=== PATIENT | female | born 1975 | race Caucasian/White ===

== ENCOUNTER 2018-12-04 15:00 | Emergency (ER) | payer BC ==
[~2018-12-04] VITALS: Ht 167.6 cm; Wt 125.0 kg
[2018-12-04 15:03] VITALS: TEMP 96.3
[2018-12-04 15:46] LABS: BASO # 0.1 (0.0-0.2); BASO % 0.6 % (0.0-2.0); EOS # 0.2 (0.0-0.7); EOS % 1.9 % (0-4.0); GRAN # 5.9 (1.4-6.5); GRAN % 66.4 % (42.2-75.2); HEMATOCRIT 40.5 % (37.0-47.0); HEMOGLOBIN 13.4 g/dl (12.5-16.0); LYMPH % 22.1 % (20.0-51.0); MEAN CELL VOLUME 89 fl (80.0-100.0); MEAN CORPUSCULAR HEMOGLOBIN 29 pg (27.0-31.0); MEAN CORPUSCULAR HGB CONC 33 g/dl (33.0-37.0); MEAN PLATELET VOLUME 10.7 fl (7.4-10.4); MONO # 0.8 (0.1-0.6); MONO % 8.8 % (1.7-9.3); PLATELET COUNT 284 K/mm3 (130-400); RED BLOOD COUNT 4.57 M/mm3 (4.10-5.30); REDCELL DISTRIBUTION WIDTH-CV 14.1 % (11.5-14.5)
[2018-12-04 15:51] LABS: ALBUMIN 4.4 gm/dL (3.5-5.0); BILIRUBIN,TOTAL 0.5 mg/dL (0.0-1.0); CALCIUM 9.3 mg/dL (8.4-10.2); CREATININE, serum 0.9 mg/dL (0.52-1.25); POTASSIUM 3.8 mmol/L (3.4-5.0); TOTAL PROTEIN 7.9 gm/dL (6.4-8.2)
[2018-12-04 16:25] LABS: COLLECTION METHOD CLEAN CATCH
[2018-12-04 16:47] LABS: MUCOUS Present /lpf; PH 5 (5-8); SQUAMOUS EPITHELIAL 0-2 /hpf; URINE APPEARANCE Hazy; URINE BACTERIA None Seen /hpf; URINE BILIRUBIN Negative (NEGATIVE); URINE BLOOD 1+ (NEGATIVE); URINE COLOR Yellow; URINE GLUCOSE Negative (NEGATIVE); URINE KETONE Negative (NEGATIVE); URINE LEUKOCYTE ESTERASE Negative (NEGATIVE); URINE NITRATE Negative (NEGATIVE); URINE PROTEIN(semi-quant) Negative (NEGATIVE); URINE UROBILINOGEN Negative (NEGATIVE)
[2018-12-04 17:34] VITALS: BP 129/65; PULSE 88
== END 2018-12-04 17:35 | disposition home or self-care (01) ==
LOC: COL.ER 15:00
PROVIDERS: Nurse Practitioner
DX: J40 Bronchitis, not specified as acute or chronic (principal)
CPT/HCPCS: J1100; J2270

== ENCOUNTER → 2019-02-02 | Outpatient (CLI) | payer BC | LOC: COL.RAD 10:19 | DX: K80.20 Calculus of gallbladder without cholecystitis without obstruction (principal); K82.8 Other specified diseases of gallbladder ==

== ENCOUNTER 2019-02-18 05:06 | Day surgery (SDC) | payer BC ==
[~2019-02-18] VITALS: Ht 167.6 cm; Wt 134.0 kg
[2019-02-18] VITALS (11 sets, daily range): BP systolic 140–154; BP diastolic 52–94; PULSE 71–83; TEMP 97.3–97.8
--- NOTE | 2019-02-18 11:00 | NUR ---
Patient arrives to [facility] [place] [facility] via cart, accompanied by VICE [employer]IDENT [employer] Ashley. Patient is arousable to physical stimulation and is oriented when awake. She has 4 operative sites with clean, dry, intact [place]. Monitoring applied - VSS and WNL on 3L nasal cannula. She complains of mild pain in her abdomen a 4/10, but is asleep when not stimulated. Call light in reach. Will continue to monitor.
--- NOTE | 2019-02-18 11:15 | NUR ---
Patient is sleeping. Arousable to stimulation. VSS and WNL on 1L nasal cannula. Operative sites remain clean, dry, intact. Patient denies any nausea. Has mild pain, remains a 4/10. Given Ice chips to start. Will continue to monitor.
--- NOTE | 2019-02-18 11:30 | NUR ---
VSS and WNL on 1 L nasal cannula. Patient continues to be very sleepy, but easily aroused to voice now.
--- NOTE | 2019-02-18 11:45 | NUR ---
VSS and WNL on 1 L nasal cannula. Patient is more alert. Offered and receives water and applesauce. Tolerating PO well. Denies any nausea.
--- NOTE | 2019-02-18 12:00 | NUR ---
VSS and WNL on 1 L nasal cannula.
--- NOTE | 2019-02-18 12:30 | NUR ---
VSS and WNL on room air. Patient given [place] for pain 02/17.
--- NOTE | 2019-02-18 13:00 | NUR ---
SpO2 ranging from 88-92% on room air. Placed back on 2L nasal cannula. Encouraged coughing and deep breathing. Given pillow to splint abdomen. States pain is improved after intervention. Pain now a 2/10. Will continue to monitor.
--- NOTE | 2019-02-18 13:30 | NUR ---
Patient requests to use restroom. Escorted to restroom where she voids and then returns to room. Patients vital signs are stable on room air. Denies pain, nausea, or need.
--- NOTE | 2019-02-18 14:00 | NUR ---
VSS and WNL on room air. Patient eating a muffin and juice. Discharge criteria has been met. Waiting on ride home.
--- NOTE | 2019-02-18 14:25 | NUR ---
Discharge instructions discussed, denies any questions, and verbalizes understanding. PIV removed with catheter intact and hemostasis achieved. Patient changes to clothing independently. Waiting for ride home.
--- NOTE | 2019-02-18 14:52 | NUR ---
Patient escorted to exit via wheelchair by ARIE Alexander. Discharged to home with ride in private vehicle at 1452.
== END 2019-02-18 14:52 | disposition home or self-care (01) ==
LOC: SDCO 05:06
DX: K80.10 Calculus of gallbladder with chronic cholecystitis without obstruction (principal); Z82.49 Family history of ischemic heart disease and other diseases of the circulatory system; Z80.7 Family history of other malignant neoplasms of lymphoid, hematopoietic and related tissues; E66.01 Morbid (severe) obesity due to excess calories; Z68.42 Body mass index [BMI] 45.0-49.9, adult
CPT/HCPCS: J0690; J1100; J2405; J2704; J3010; J7120

== ENCOUNTER 2021-12-19 07:50 | Day surgery (SDC) | payer BC ==
[~2021-12-19] VITALS: Ht 167.6 cm; Wt 137.8 kg
[2021-12-19 09:21] VITALS: BP 142/77; PULSE 87; TEMP 97.8
[2021-12-19 09:25] LABS: BASO % 0.6 % (0.0-2.0); EOS # 0.2 K/mm3 (0.0-0.7); EOS % 2.6 % (0.0-4.0); GRAN # 4.2 K/mm3 (1.4-6.5); GRAN % 59.4 % (42.2-75.2); HEMATOCRIT 42.1 % (37.0-47.0); LYMPH # 2.1 K/mm3 (1.2-3.4); LYMPH % 29.3 % (20.0-51.0); MEAN CELL VOLUME 88 fl (80.0-100.0); MEAN CORPUSCULAR HEMOGLOBIN 29 pg (27-31); MEAN CORPUSCULAR HGB CONC 33 g/dl (33.0-37.0); MEAN PLATELET VOLUME 10.6 fl (7.4-10.4); MONO # 0.5 K/mm3 (0.1-0.6); MONO % 7.7 % (1.7-9.3); PLATELET COUNT 279 K/mm3 (130-400); RED BLOOD COUNT 4.79 M/mm3 (4.10-5.30); REDCELL DISTRIBUTION WIDTH-CV 14.2 % (11.5-14.5)
[2021-12-19 09:35] LABS: CALCIUM 9.2 mg/dL (8.4-10.2); CREATININE, serum 0.81 mg/dL (0.57-1.11); POTASSIUM 4.6 mmol/L (3.5-4.5)
[2021-12-19] MEDS ORDERED: NORCO 325 MG-51 TAB PO (12:13)
[2021-12-19 13:00] VITALS: BP 113/76; PULSE 78; TEMP 97.8
--- NOTE | 2021-12-19 13:00 | NUR ---
Patient arrived back into [facility] from OR. ARIE Mari brought patient via cart. Report recieved from ARIE Looney. Patient on 2L NC and vitally stable. Patient requesting blueberry muffin and apple juice.
[2021-12-19 13:15] VITALS: BP 118/81; PULSE 81
--- NOTE | 2021-12-19 13:15 | NUR ---
Patient doing well. Weaned to 1L NC and vitally stable. Tolerated food and drink well. States pain is tolerable and denies nausea.
[2021-12-19 13:30] VITALS: BP 125/81; PULSE 87
--- NOTE | 2021-12-19 13:30 | NUR ---
Patient states she would like to use restroom. Having pain when getting up and moving and patient requests pain medication prior to leaving. Ambulated to restroom independently. Able to void successfully.
--- NOTE | 2021-12-19 13:45 | NUR ---
[place] given per MAR for incisional pain. Assisted patient to get on pants and underwear. Educated patient on splinting the abdomen when moving, coughing, or laughing.
--- NOTE | 2021-12-19 13:55 | NUR ---
Went through discharge instructions with patient. Questions answered. Verbalized understanding to education. IV removed without complications. Patient escorted to emergency department entrance via wheelchair where we were met by Anai, friend. Patient got into personal vehicle unassisted and left in the care of her friend.
[2021-12-19 15:50] VITALS: BP 109/76; PULSE 87
== END 2021-12-19 14:10 | disposition home or self-care (01) ==
LOC: SDCO 07:50
PROVIDERS: Surgery
DX: K43.2 Incisional hernia without obstruction or gangrene (principal); I10 Essential (primary) hypertension; E11.9 Type 2 diabetes mellitus without complications; E66.01 Morbid (severe) obesity due to excess calories; Z68.42 Body mass index [BMI] 45.0-49.9, adult; Z90.49 Acquired absence of other specified parts of digestive tract
CPT/HCPCS: C1781; J0690; J1100; J1170; J1885; J2405; J2704; J3010; J7120

== ENCOUNTER → 2022-03-14 | Outpatient (CLI) | payer BC ==
[~2022-03-14] MED LIST: NORCO 325 MG-51 TAB PO
== END ==
LOC: MC.RAD 10:20
DX: Z12.31 Encounter for screening mammogram for malignant neoplasm of breast (principal)

== ENCOUNTER 2022-09-13 08:37 | Emergency (ER) | payer BC ==
[~2022-09-13] VITALS: Ht 167.6 cm; Wt 125.9 kg
[2022-09-13] VITALS (97 sets, daily range): BP systolic 124; BP diastolic 73; PULSE 78; TEMP 98.2; O2SAT 94–98
[2022-09-13 09:28] LABS: BASO % 0.4 % (0.0-2.0); EOS # 0.2 K/mm3 (0.0-0.7); EOS % 2.5 % (0.0-4.0); GRAN # 4.6 K/mm3 (1.4-6.5); GRAN % 62.1 % (42.2-75.2); HEMATOCRIT 42.1 % (37.0-47.0); HEMOGLOBIN 13.3 g/dl (12.5-16.0); LYMPH % 26.4 % (20.0-51.0); MEAN CELL VOLUME 91 fl (80.0-100.0); MEAN CORPUSCULAR HEMOGLOBIN 29 pg (27-31); MEAN CORPUSCULAR HGB CONC 32 g/dl (33.0-37.0); MEAN PLATELET VOLUME 10.9 fl (7.4-10.4); MONO # 0.6 K/mm3 (0.1-0.6); MONO % 8.2 % (1.7-9.3); PLATELET COUNT 252 K/mm3 (130-400); RED BLOOD COUNT 4.62 M/mm3 (4.10-5.30); REDCELL DISTRIBUTION WIDTH-CV 14.6 % (11.5-14.5)
[2022-09-13 09:38] LABS: COLLECTION METHOD CLEAN CATCH
[2022-09-13 09:42] LABS: ALANINE AMINOTRANSFERASE 15 U/L (0-55); ALBUMIN 3.5 gm/dL (3.5-5.0); ALKALINE PHOSPHATASE 63 U/L (40-150); ANION GAP 7 mmol/L (7-16); AST,SGOT 16 U/L (5-34); BILIRUBIN,TOTAL 0.4 mg/dL (0.2-1.2); BLOOD UREA NITROGEN 8 mg/dL (7-19); CALCIUM 8.7 mg/dL (8.4-10.2); CARBON DIOXIDE 24 mmol/L (22-29); CHLORIDE 108 mmol/L (98-107); CREATININE, serum 0.77 mg/dL (0.57-1.11); GLUCOSE 99 mg/dL (70-99); LIPASE 28 U/L (8-78); POTASSIUM 4.5 mmol/L (3.5-4.5); SODIUM 139 mmol/L (136-145); TOTAL PROTEIN 6.9 gm/dL (6.2-8.1)
[2022-09-13 09:49] LABS: TROPONIN-I < 0.010 ng/mL (0.00-0.033)
[2022-09-13 09:56] LABS: URINE APPEARANCE Clear (CLEAR/HAZY); URINE BLOOD Negative (NEGATIVE); URINE COLOR Yellow (YELLOW); URINE GLUCOSE Negative (NEGATIVE); URINE KETONE Negative (NEGATIVE); URINE NITRATE Negative (NEGATIVE); URINE PROTEIN(semi-quant) Negative (NEGATIVE); URINE UROBILINOGEN 0.2 E.U/dL (0.2-1.0)
[2022-09-13 10:06] LABS: MUCOUS Present (NOT PRESENT); SQUAMOUS EPITHELIAL 0-2 /hpf (0-10); URINE BACTERIA Rare /hpf (NONE SEEN); URINE RBC 0-2 /hpf (0-2)
== END 2022-09-13 11:08 | disposition home or self-care (01) ==
LOC: COL.ER 08:37
PROVIDERS: Emergency Medicine
DX: R11.0 Nausea (principal); R10.32 Left lower quadrant pain; R07.89 Other chest pain; Z32.02 Encounter for pregnancy test, result negative; Z90.49 Acquired absence of other specified parts of digestive tract
CPT/HCPCS: J1885; J2765; Q9967

== ENCOUNTER 2023-01-31 07:12 | Emergency (ER) | payer OTHER ==
[~2023-01-31] VITALS: Ht 167.6 cm; Wt 125.0 kg
[2023-01-31] MEDS ORDERED: LEXAPRO20 MG PO (07:26)
[2023-01-31 07:36] LABS: BASO # 0.1 K/mm3 (0.0-0.2); BASO % 0.5 % (0.0-2.0); EOS # 0.3 K/mm3 (0.0-0.7); EOS % 2.6 % (0.0-4.0); GRAN # 6.1 K/mm3 (1.4-6.5); GRAN % 58.9 % (42.2-75.2); HEMATOCRIT 41.6 % (37.0-47.0); HEMOGLOBIN 13.7 g/dl (12.5-16.0); LYMPH # 2.8 K/mm3 (1.2-3.4); LYMPH % 27.3 % (20.0-51.0); MEAN CELL VOLUME 91 fl (80.0-100.0); MEAN CORPUSCULAR HEMOGLOBIN 30 pg (27-31); MEAN CORPUSCULAR HGB CONC 33 g/dl (33.0-37.0); MEAN PLATELET VOLUME 10.3 fl (7.4-10.4); MONO # 1.1 K/mm3 (0.1-0.6); MONO % 10.2 % (1.7-9.3); PLATELET COUNT 296 K/mm3 (130-400); RED BLOOD COUNT 4.59 M/mm3 (4.10-5.30); REDCELL DISTRIBUTION WIDTH-CV 14.4 % (11.5-14.5)
[2023-01-31 07:53] LABS: ALBUMIN 3.8 gm/dL (3.5-5.0); BILIRUBIN,TOTAL 0.4 mg/dL (0.2-1.2); CALCIUM 9.3 mg/dL (8.4-10.2); CREATININE, serum 0.82 mg/dL (0.57-1.11); POTASSIUM 4.2 mmol/L (3.5-4.5); TOTAL PROTEIN 7.4 gm/dL (6.2-8.1)
[2023-01-31 07:59] LABS: TROPONIN-I 0.01 ng/mL (0.00-0.033)
[2023-01-31 10:35] LABS: HEMATOCRIT 41.3 % (37.0-47.0); HEMOGLOBIN 13.8 g/dl (12.5-16.0); MEAN CELL VOLUME 90 fl (80.0-100.0); MEAN CORPUSCULAR HEMOGLOBIN 30 pg (27-31); MEAN CORPUSCULAR HGB CONC 33 g/dl (33.0-37.0); MEAN PLATELET VOLUME 10.3 fl (7.4-10.4); PLATELET COUNT 284 K/mm3 (130-400); RED BLOOD COUNT 4.61 M/mm3 (4.10-5.30); REDCELL DISTRIBUTION WIDTH-CV 14.4 % (11.5-14.5)
[2023-01-31 10:56] LABS: PROTHROMBIN TIME 11.3 SECONDS (9.7-12.8)
[2023-01-31 11:10] VITALS: BP 123/95; PULSE 87; TEMP 98.2
[2023-01-31 11:14] LABS: PARTIAL THROMBOPLASTIN TIME 124.8 SECONDS (26.0-37.0)
== END 2023-01-31 11:10 | disposition short-term general hospital (02) ==
LOC: COL.ER 07:12
PROVIDERS: Family Medicine
DX: I24.9 Acute ischemic heart disease, unspecified (principal); Z87.891 Personal history of nicotine dependence
CPT/HCPCS: J1644; J2270